=== PATIENT | male | born 1990 | race Caucasian/White ===

== ENCOUNTER 2020-12-19 08:50 | Emergency (ER) | payer BC ==
[2020-12-19] MEDS ORDERED: Sodium Chloride 0.9% 10 ML Syringe FLUSH PRN (09:15)
[2020-12-19] MEDS ORDERED: Ondansetron 4 MG/2 ML SDV IVPUSH ONE (09:16)
[2020-12-19] MEDS ORDERED: Sodium Chloride 0.9% 1,000 ML IV ONE ×2 (09:16→10:13)
--- NOTE | 2020-12-19 09:18 | EDM.PDOC ---
ED HPI GENERAL MEDICAL PROBLEM - General Chief Complaint: Abdominal Pain Stated Complaint: DEHYDRATION Time Seen by Provider: 12/19/20 09:08 Source of Information: Reports: Patient History Limitations: Reports: No Limitations - History of Present Illness INITIAL COMMENTS - FREE TEXT/NARRATIVE: 30-year-old male who reports was feeling well until approximately midnight last night when he developed diarrhea with abdominal cramping and then vomiting. He reports he has had diarrhea 12+. It was watery and there was no blood noted in it. He also has had vomiting 3 with the last bit being somewhat bilious. He reports that the abdominal cramping and pain is rated by him as a 4/10. It is diffuse. It is worse with palpation. He also reports he has tingling and numbness from his thighs down to his toes and from his elbows down to his fingertips and that discomfort he rates as a 3/10. He has had no difficulty breathing and no cough. He has tried multiple times to drink liquids but has not been able to retain any oral intake since last night. He did feel somewhat warm's morning but was unable to check his temperature. No nasal congestion. No sore throat. No loss of taste or smell. He has had urine output. No dysuria or hematuria. No known exposure to COVID 19. No other sick contacts at home. There are no other associated signs or symptoms. There are no other modifying factors. Onset: Today (Midnight) Duration: Constant Location: Reports: Abdomen, Upper Extremity, Left, Upper Extremity, Right, Lower Extremity, Left, Lower Extremity, Right Quality: Reports: Other (Cramping in his abdomen. Tingling in his arms and legs.) Severity: Moderate Improves with: Reports: None Worsens with: Reports: Other (Palpation) Context: Reports: Other (As above) Associated Symptoms: Reports: No Other Symptoms (Except as above.) Treatments NEON SIGN MECH[employer]IC: Reports: Other (see below) (Nothing.) - Related Data Allergies Allergy/AdvReac Type Severity Reaction Status Date / Time No Known Allergies Allergy Verified 12/19/20 09:13 Home Meds: Home Meds Ondansetron [Zofran ODT] 4 mg PO Q6H PRN #8 tab.dis 12/19/20 [Rx] Past Medical History - Past Health History Medical/Surgical History: Denies Medical/Surgical History (No chronic medical problems. 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 ED ROS GENERAL - Review of Systems Review Of Systems: See Below Constitutional: Reports: Fever (Subjective), Fatigue HEENT: Reports: No Symptoms Respiratory: Reports: No Symptoms Cardiovascular: Reports: No Symptoms GI/Abdominal: Reports: Abdominal Pain, Diarrhea, Nausea, Vomiting : Reports: No Symptoms Musculoskeletal: Reports: No Symptoms Skin: Reports: No Symptoms Neurological: Reports: Tingling (In both arms and legs.) Psychiatric: Reports: No Symptoms Hematologic/Lymphatic: Reports: No Symptoms Immunologic: Reports: No Symptoms ED EXAM, GI/ABD - Physical Exam Exam: See Below Exam Limited By: No Limitations General Appearance: Alert, WD/WN, Moderate Distress (Appears in some discomfort.) Eyes: Bilateral: Normal Appearance, EOMI Ears: Normal External Exam, Hearing Grossly Normal Nose: Normal Inspection, Normal Mucosa, No Blood Throat/Mouth: Normal Voice, No Airway Compromise, Other (Dry mucous membranes) Head: Atraumatic, Normocephalic Neck: Normal Inspection, Supple, Non-Tender, Full Range of Motion Respiratory/Chest: No Respiratory Distress, Lungs Clear, Normal Breath Sounds, No Accessory Muscle Use, Chest Non-Tender Cardiovascular: Normal Peripheral Pulses, Regular Rate, Rhythm, No Murmur GI/Abdominal Exam: Normal Bowel Sounds, Soft, No Mass, Tender (Mild diffuse tenderness) Back Exam: Normal Inspection, Full Range of Motion Extremities: Normal Inspection, Normal Range of Motion, Non-Tender, No Pedal Edema, Normal Capillary Refill Neurological: Alert, Oriented, CN II-XII Intact, Normal Cognition, No Motor/Sensory Deficits Psychiatric: Normal Affect Skin Exam: Warm, Dry, Intact, Normal Color, No Rash Course - Vital Signs Last Recorded V/S: Last Vital Signs Temp 36.9 C 12/19/20 09:17 Pulse 95 12/19/20 09:17 Resp 20 12/19/20 09:17 BP 128/84 12/19/20 09:17 Pulse Ox 100 12/19/20 09:17 - Orders/Labs/Meds Orders: Active Orders 24 hr Category Date Time Status Sodium Chloride 0.9% [Normal Saline] 1,000 ml Med 12/19/20 09:30 Active IV ASDIRECTED Sodium Chloride 0.9% [Saline Flush] Med 12/19/20 09:15 Active 10 ml FLUSH ASDIRECTED PRN Peripheral IV Insertion Adult [OM.PC] Routine Oth 12/19/20 09:15 Ordered Medication Orders Sodium Chloride (Normal Saline) 1,000 mls @ 150 mls/hr IV ASDIRECTED NICOLLE Last Admin: 12/19/20 09:30 Dose: 150 mls/hr Documented by: LISANDRO Sodium Chloride (Sodium Chloride 0.9% 10 Ml Syringe) 10 ml FLUSH ASDIRECTED PRN PRN Reason: Keep Vein Open Last Admin: 12/19/20 09:31 Dose: 10 ml Documented by: LISANDRO Labs: Laboratory Tests 12/19/20 12/19/20 12/19/20 Range/Units 09:25 09:25 09:25 WBC 8.3 (3.2-10.1) x10-3/uL RBC 5.01 (3.90-5.90) x10(6)uL Hgb 14.6 (12.9-17.7) g/dL Hct 43.3 (38.3-50.1) % MCV 86.4 (80.8-98.7) fL MCH 29.0 (27.0-33.3) pg MCHC 33.6 (28.7-35.3) g/dL RDW 12.7 (12.4-15.0) % Plt Count 231 (117-477) x10(3)uL MPV 8.2 (6.7-11.0) fL Neut % (Auto) 86.8 H (40.3-71.8) % Lymph % (Auto) 8.5 L (15.8-45.3) % [place] % (Auto) 4.2 L (5.5-15.2) % Eos % (Auto) 0.2 (0.1-6.8) % Baso % (Auto) 0.3 (0.3-3.8) % Neut # (Auto) 7.2 H (1.7-6.9) x10-3/uL Lymph # (Auto) 0.7 (0.5-4.5) x10-3/uL [place] # (Auto) 0.3 (0.0-1.2) x10-3/uL Eos # (Auto) 0.0 (0.0-0.6) x10-3/uL Baso # (Auto) 0.0 (0.0-0.3) x10-3/uL Sodium 140 (135-145) mmol/L Potassium 3.6 (3.5-5.3) mmol/L Chloride 102 (100-110) mmol/L Carbon Dioxide 28 (21-32) mmol/L BUN 7 (7-18) mg/dL Creatinine 1.0 (0.70-1.30) mg/dL Est Cr Clr Drug Dosing 114.58 mL/min Estimated GFR (MDRD) > 60 (>60) BUN/Creatinine Ratio 7.0 L (9-20) Glucose 114 (80-116) mg/dL Calcium 9.1 (8.6-10.2) mg/dL Magnesium 1.8 (1.8-2.5) mg/dL Total Bilirubin 0.8 (0.1-1.3) mg/dL AST 14 (5-25) IU/L ALT 21 (12-36) U/L Alkaline Phosphatase 67 (56-112) IU/L Total Protein 7.7 (6.0-8.0) g/dL Albumin 4.2 (3.5-5.2) g/dL Globulin 3.5 g/dL Albumin/Globulin Ratio 1.2 Lipase 81 (73-393) U/L Urine Color (YELLOW) Urine Appearance (CLEAR) Urine pH (5.0-6.5) Ur Specific [place] (1.010-1.025) Urine Protein (NEGATIVE) mg/dL Urine Glucose (UA) (NORMAL) mg/dL Urine Ketones (NEGATIVE) mg/dL Urine Occult Blood (NEGATIVE) Urine Nitrite (NEGATIVE) Urine Bilirubin (NEGATIVE) Urine Urobilinogen (NEGATIVE) mg/dL Ur Leukocyte Esterase (NEGATIVE) Ur Squamous Epith Cells (NS,R,O) Urine Bacteria (NS) SARS-CoV-2 RNA (REYMUNDO) (NEGATIVE) 12/19/20 12/19/20 Range/Units 09:30 10:50 WBC (3.2-10.1) x10-3/uL RBC (3.90-5.90) x10(6)uL Hgb (12.9-17.7) g/dL Hct (38.3-50.1) % MCV (80.8-98.7) fL MCH (27.0-33.3) pg MCHC (28.7-35.3) g/dL RDW (12.4-15.0) % Plt Count (117-477) x10(3)uL MPV (6.7-11.0) fL Neut % (Auto) (40.3-71.8) % Lymph % (Auto) (15.8-45.3) % [place] % (Auto) (5.5-15.2) % Eos % (Auto) (0.1-6.8) % Baso % (Auto) (0.3-3.8) % Neut # (Auto) (1.7-6.9) x10-3/uL Lymph # (Auto) (0.5-4.5) x10-3/uL [place] # (Auto) (0.0-1.2) x10-3/uL Eos # (Auto) (0.0-0.6) x10-3/uL Baso # (Auto) (0.0-0.3) x10-3/uL Sodium (135-145) mmol/L Potassium (3.5-5.3) mmol/L Chloride (100-110) mmol/L Carbon Dioxide (21-32) mmol/L BUN (7-18) mg/dL Creatinine (0.70-1.30) mg/dL Est Cr Clr Drug Dosing mL/min Estimated GFR (MDRD) (>60) BUN/Creatinine Ratio (9-20) Glucose (80-116) mg/dL Calcium (8.6-10.2) mg/dL Magnesium (1.8-2.5) mg/dL Total Bilirubin (0.1-1.3) mg/dL AST (5-25) IU/L ALT (12-36) U/L Alkaline Phosphatase (56-112) IU/L Total Protein (6.0-8.0) g/dL Albumin (3.5-5.2) g/dL Globulin g/dL Albumin/Globulin Ratio Lipase (73-393) U/L Urine Color Yellow (YELLOW) Urine Appearance Clear (CLEAR) Urine pH 8.0 H (5.0-6.5) Ur Specific [place] 1.010 (1.010-1.025) Urine Protein Negative (NEGATIVE) mg/dL Urine Glucose (UA) Normal (NORMAL) mg/dL Urine Ketones Negative (NEGATIVE) mg/dL Urine Occult Blood Negative (NEGATIVE) Urine Nitrite Negative (NEGATIVE) Urine Bilirubin Negative (NEGATIVE) Urine Urobilinogen Normal (NEGATIVE) mg/dL Ur Leukocyte Esterase Negative (NEGATIVE) Ur Squamous Epith Cells Rare (NS,R,O) Urine Bacteria Rare H (NS) SARS-CoV-2 RNA (REYMUNDO) Negative (NEGATIVE) Meds: Medications Generic Name Dose Route Start Last Admin Trade Name Cornell PRN Reason Stop Dose Admin Sodium Chloride 1,000 mls @ 150 mls/hr 12/19/20 09:30 12/19/20 09:30 Normal Saline IV 150 mls/hr ASDIRECTED NICOLLE Administration Sodium Chloride 10 ml 12/19/20 09:15 12/19/20 09:31 Sodium Chloride 0.9% 10 Ml Syringe FLUSH 10 ml ASDIRECTED PRN Administration Keep Vein Open Discontinued Medications Generic Name Dose Route Start Last Admin Trade Name Cornell PRN Reason Stop Dose Admin Sodium Chloride 1,000 mls @ 999 mls/hr 12/19/20 09:16 12/19/20 09:30 Normal Saline IV 12/19/20 10:16 999 mls/hr .BOLUS ONE Administration Sodium Chloride 1,000 mls @ 999 mls/hr 12/19/20 10:13 12/19/20 10:50 Normal Saline IV 12/19/20 11:13 999 mls/hr .BOLUS ONE Administration Ondansetron HCl 4 mg 12/19/20 09:16 12/19/20 09:30 Ondansetron 4 Mg/2 Ml Sdv IVPUSH 12/19/20 09:17 4 mg ONETIME ONE Administration - Re-Assessments/Exams Free Text/Narrative Re-Assessment/Exam: 12/19/20 10:17: The patient reports that he is beginning to feel somewhat better after the IV fluids have been going. His lab tests thus far are reassuringly normal. His rapid COVID is pending. He has not produced any urine as of yet. I will another 1 L bolus to be given IV. 12/19/20 11:08: Patient has had urine output. Urine is pending at this time. He feels much improved. He has approximately 500 mL of normal saline left to go to complete 2 L normal saline IV. I will have him take ice chips. 12/19/20 11:45: Urinalysis was clear. The remainder of the second liter of IV fluids has been infused. He has tolerated ice chips well with no further nausea or emesis. He has had no further diarrhea. He feels much improved. He is stable for discharge at this point. I will provide the patient with a prescription for Zofran for nausea. Precautions and reasons to return to the emergency department were discussed with the patient while he was in the emergency department and were detailed in the patient's discharge instructions. The patient is comfortable to plan for discharge. Departure - Departure Time of Disposition: 11:55 Disposition: Home, Self-Care 01 Condition: Good (Improved) Clinical Impression: Vomiting and diarrhea, Moderate dehydration - Discharge Information Prescriptions: Ondansetron [Zofran ODT] 4 mg PO Q6H PRN #8 tab.dis PRN Reason: Nausea/Vomiting Instructions: Dehydration, Adult, [id number], Nausea and Vomiting, Adult, [id number], Diarrhea, Adult, [id number] Forms: ED Department Discharge Additional Instructions: Your blood tests were all reassuringly normal. Your urine test was normal. Your COVID test was negative. You appear to have a viral infection of your intestines and this caused the vomiting and diarrhea. This caused some dehydration. We have corrected this somewhat with the IV fluids. You should stick with fluids for the next 8-10 hours and then you may advance your diet slowly as tolerated if you tolerate liquids. Medication as prescribed for nausea (Zofran 4 mg ODT). Rest. No work until 05/23/2021. Back to the emergency department for worsening abdominal pain, high fever, unrelenting vomiting, blood in your stool or any other concerning sign or symptom. Sepsis Event Note (ED) - Focused Exam Vital Signs: Vital Signs Temp Pulse Resp BP Pulse Ox 12/19/20 09:17 36.9 C 95 20 128/84 100 - My Orders Last 24 Hours: My Active Orders 12/19/20 09:15 Sodium Chloride 0.9% [Saline Flush] 10 ml FLUSH ASDIRECTED PRN Peripheral IV Insertion Adult [OM.PC] Routine 12/19/20 09:30 Sodium Chloride 0.9% [Normal Saline] 1,000 ml IV ASDIRECTED - Assessment/Plan Last 24 Hours: My Active Orders 12/19/20 09:15 Sodium Chloride 0.9% [Saline Flush] 10 ml FLUSH ASDIRECTED PRN Peripheral IV Insertion Adult [OM.PC] Routine 12/19/20 09:30 Sodium Chloride 0.9% [Normal Saline] 1,000 ml IV ASDIRECTED
[2020-12-19] MEDS ORDERED: Sodium Chloride 0.9% 1,000 ML IV SCH (09:30)
== END 2020-12-19 12:15 | disposition home or self-care (01) ==
LOC: FB.ED 08:50
DX: E86.0 Dehydration (principal); R11.2 Nausea with vomiting, unspecified; R19.7 Diarrhea, unspecified; R10.84 Generalized abdominal pain; R20.2 Paresthesia of skin; R50.9 Fever, unspecified; Z20.822 Contact with and (suspected) exposure to COVID-19
CPT/HCPCS: 36415; 80053; 81001; 83690; 83735; 85025; 87635; 96374; 99284; J2405; J7030; U0002

== ENCOUNTER 2022-12-23 09:00 | Emergency (ER) | payer OTHER ==
[2022-12-23] MEDS ORDERED: Ondansetron 4 MG/2 ML SDV IVPUSH ONE (09:45)
[2022-12-23] MEDS ORDERED: Alum Hydroxide/Mag Hydroxide 15 ML, Lidocaine 2% 15 ML PO ONE ×2 (09:45)
[2022-12-23] MEDS: Sodium Chloride 0.9% 10 ML Syringe FLUSH PRN ×2 (09:50→10:08)
[2022-12-23 10:08] LABS: ESTIMATED GFR 115 mL/min (>60)
[2022-12-23] MEDS ORDERED: Sodium Chloride 0.9% 1,000 ML IV ONE (10:21)
[2022-12-23] MEDS ORDERED: cefTRIAXone 2 GM Vial IVPUSH ONE (10:22)
[2022-12-23] MEDS ORDERED: Magnesium Sulfate/Water 2 GM in Premix Bag 1 BAG IV ONE (10:57)
[2022-12-23] MEDS ORDERED: Sodium Chloride 0.9% 1,000 ML IV SCH (11:30)
[2022-12-23] MEDS ORDERED: Pantoprazole 40 MG Vial IVPUSH ONE (14:15)
[2022-12-23] MEDS ORDERED: Sucralfate 1 GM Tab PO ONE (14:51)
== END 2022-12-23 16:05 | disposition home or self-care (01) ==
LOC: FB.ED 09:00
DX: E86.0 Dehydration (principal); T45.1X5A Adverse effect of antineoplastic and immunosuppressive drugs, initial encounter; Z79.899 Other long term (current) drug therapy
CPT/HCPCS: 36415; 71046; 80053; 82550; 83605; 83735; 84484; 85025; 86140; 87040; 93005; 93010; 96361; 96365; 96366; 96375; 99283; 99285; A9270; C9113; J0696; J2405; J3475; J3490; J7030